=== PATIENT | female | born 1985 | race American Indian/Alaskan Native ===

== ENCOUNTER 2017-05-01 02:11 | Emergency (ER) | payer OTHER ==
[2017-05-01 02:12] VITALS: BMI 41.1
[2017-05-01 02:28] VITALS: BP 152/95; RESP 20; O2SAT 100
[2017-05-01] MEDS ORDERED: Sodium Chloride 0.9% 1,000 ML IV STA (03:00)
--- NOTE | 2017-05-01 03:04 | ED PDOC ---
Arrival/HPI - General Chief Complaint: Flu-like Symptoms Time Seen by Provider: 05/01/17 02:42 Historian: Patient, Parent - History of Present Illness Narrative History of Present Illness (Text): you were treated in the ED today for sinus congestion, fever, chills, bodyaches , and you were otherwise without any nausea/vomiting/headache/dizziness/ difficulty breathing/chest pain/abdomen pain/numbness/tingling/loss of limb function. 05/01/17 03:01 Symptom Onset: Gradual Symptom Course: Unchanged Quality: Aching Severity Level: 2 Activities at Onset: Rest Context: Sitting Past Medical History - Provider Review Nursing Documentation Reviewed: Yes - Travel History Have you recently traveled outside [place] w/in the past 3 mons?: No - Infectious Disease Hx of Infectious Diseases: None - Tetanus Immunization Tetanus Immunization: Unknown - Reproductive Menopause: No - Cardiac Hx Cardiac Disorders: No Hx Hypertension: Yes - Pulmonary Hx Respiratory Disorders: No - Neurological Hx Neurological Disorder: No - HEENT Hx HEENT Disorder: No - Renal Hx Renal Disorder: No - Endocrine/Metabolic Hx Diabetes Mellitus Type 2: Yes Other/Comment: on insulin breast feeding - Hematological/Oncological Hx Blood Disorders: No - Integumentary Hx Dermatological Disorder: No - Musculoskeletal/Rheumatological Hx Musculoskeletal Disorders: No - Gastrointestinal Hx Gastrointestinal Disorders: No - Genitourinary/Gynecological Hx Genitourinary Disorders: No - Psychiatric Hx Psychophysiologic Disorder: No Hx Substance Use: No - Surgical History Hx Section: Yes (x1) - Anesthesia Hx Anesthesia Reactions: No Hx Malignant Hyperthermia: No - Suicidal Assessment Feels Threatened In Home Enviroment: No Family/Social History - Physician Review Nursing Documentation Reviewed: Yes Family/Social History: No Known Family HX Smoking Status: Never Smoked Hx Alcohol Use: Yes Frequency of alcohol use: Socially Hx Substance Use: No Hx Substance Use Treatment: No Allergies/Home Meds Allergies/Adverse Reactions: Allergies No Known Allergies Allergy (Verified 02/04/14 16:55) Review of Systems - Review of Systems Constitutional: Fevers Eyes: Normal ENT: Rhinorrhea, Sinus Congestion Respiratory: Cough Cardiovascular: Normal Gastrointestinal: Normal Genitourinary Female: Normal Musculoskeletal: Myalgias Skin: Normal Neurological: Normal Endocrine: Normal Hemo/Lymphatic: Normal Psychiatric: Normal Physical Exam Vital Signs Reviewed: Yes Vital Signs Temp Pulse Resp BP Pulse Ox 05/01/17 02:24 100.2 F H 108 H 20 152/95 H 100 Temperature: Febrile Blood Pressure: Hypertensive Pulse: Tachycardic Respiratory Rate: Normal Appearance: Positive for: Ill-Appearing Pain Distress: None Mental Status: Positive for: Alert and Oriented X 3 Finger Stick Blood Glucose: 91 - Systems Exam Head: Present: Atraumatic, Normocephalic Pupils: Present: PERRL Extroacular Muscles: Present: EOMI Conjunctiva: Present: Normal Ears: Present: Normal Mouth: Present: Moist Mucous Membranes Pharnyx: Present: Normal Nose (External): Present: Atraumatic Nose (Internal): Present: Boggy Neck: Present: Normal Range of Motion Respiratory/Chest: Present: Clear to Auscultation, Good Air Exchange Cardiovascular: Present: Regular Rate and Rhythm Abdomen: No: Tenderness, Distention, Normal Bowel Sounds, Peritoneal Signs, Rebound, Guarding, McBurney's Point Tender, Rovsing's Sign Present, Hernias, Feeding Tubes, Ostomy Tubes, Mass/Organomegaly, Scars, Other Back: Present: Normal Inspection Upper Extremity: Present: Normal Inspection Lower Extremity: Present: Normal Inspection Neurological: Present: GCS=15, CN II-XII Intact, Speech Normal, Motor Func Grossly Intact Skin: Present: Warm, Normal Color Psychiatric: Present: Alert, Oriented x 3, Normal Insight, Normal Concentration Medical Decision Making ED Course and Treatment: you were treated in the ED today for sinus congestion, fever, chills, bodyaches , and you were otherwise without any nausea/vomiting/headache/dizziness/ difficulty breathing/chest pain/abdomen pain/numbness/tingling/loss of limb function. you were sitting up, alert/oriented, good strength/sensation, no abdomen tenderness, pink skin, low fever temp 100.2 and repeat 99.1, mildly fast heart rate 108 and repeat 90, stable breathing rate 20, excellent oxygen level 100% room air, elevated blood pressure 152/95 which we recommend followup primary care 2-3 days repeat and determine further treatment, no infection count on blood tests 6.3, stable blood levels hemaglobin/platelet 12/ 211, stable chemistry test, urine test negative, influenza test positive, radiology chest xray initial without acute findings, tylenol, intravenous fluids, tamiflu and observation done in the ED, counselled to drink lots of fluids, and discharged home with mother. 1. recommend followup primary care 1-2 days to determine further care. 2. recommend tamiflu as directed for influenza control. 3. if any worsening pain, fever, chills, nausea, vomiting, any medical condition then return to the ED. 05/01/17 03:05 05/01/17 03:41 05/01/17 04:09 05/01/17 04:12 Reassessment Condition: Improved - Lab Interpretations Lab Results: 05/01/17 03:00 05/01/17 03:00 Lab Results 05/01/17 03:00: Sodium 143, Potassium 3.7, Chloride 108 H, Carbon Dioxide 24, Anion Gap 14, BUN 7, Creatinine 0.8, Est GFR ( Amer) > 60, Est GFR (Non- Af Amer) > 60, Random Glucose 91, Calcium 9.4, Total Bilirubin 0.3, AST 27, ALT 29, Alkaline Phosphatase 48, Total Protein 6.6, Albumin 3.5, Globulin 3.1, Albumin/Globulin Ratio 1.1 05/01/17 03:00: Influenza Typ A,B (EIA) Pos for influenza b H 05/01/17 03:00: WBC 6.3, RBC 4.52, Hgb 12.2, Hct 36.6, MCV 81.0, MCH 27.0, MCHC 33.3, RDW 13.1, Plt Count 211, MPV 9.9, Gran % 67.1, Lymph % (Auto) 18.4 L, [place] % (Auto) 13.8 H, Eos % (Auto) 0.5 L, Baso % (Auto) 0.2, Gran # 4.24, Lymph # (Auto) 1.2, [place] # (Auto) 0.9 H, Eos # (Auto) 0.0, Baso # (Auto) 0.01 I have reviewed the lab results: Yes - RAD Interpretation Radiology Orders: 05/01/17 03:05 CHEST ONE VIEW [RAD] Stat Money Position Officer: ED Physician (cxr no acute) - Medication Orders Current Medication Orders: Discontinued Medications Acetaminophen (Tylenol 325mg Tab) 975 mg PO STAT STA Stop: 05/01/17 03:01 Last Admin: 05/01/17 03:04 Dose: 975 mg MAR Pain/Vitals Document 05/01/17 03:04 JAMIE (Rec: 05/01/17 03:05 [facility] [id number]) Pain Reassessment Is This A Pain ReAssessment? No Sleep Is patient sleeping during reassessment? No Presence of Pain Presence of Pain Yes Pain Scale Used Pain Scale Used Numeric Location Pain Location Body Site Generalized Intensity 5 Sodium Chloride (Sodium Chloride 0.9%) 1,000 mls @ 999 mls/hr IV .Q1H1M STA Stop: 05/01/17 04:00 Last Admin: 05/01/17 03:04 Dose: 999 mls/hr eMAR Start Stop Document 05/01/17 03:04 JOEzekiel (Rec: 05/01/17 03:04 [facility] [id number]) Intravenous Solution Start Date 05/01/17 Start Time 03:04 End Date 05/01/17 End time 04:05 Total Infusion Time 61 Oseltamivir Phosphate (Tamiflu Cap) 75 mg PO ONCE ONE PRN Reason: Protocol Stop: 05/01/17 03:45 Last Admin: 05/01/17 03:57 Dose: 75 mg Disposition/Present on Arrival - Present on Arrival Any Indicators Present on Arrival: No History of DVT/PE: No History of Uncontrolled Diabetes: No Urinary Catheter: No History of Decub. Ulcer: No History Surgical Site Infection Following: None - Disposition Have Diagnosis and Disposition been Completed?: Yes Diagnosis: Influenza Disposition: HOME/ ROUTINE Disposition Time: 04:13 Isolation: Airborne Patient Plan: Discharge Patient Problems: Current Active Problems Problem Status Onset Influenza Acute Condition: IMPROVED Additional Instructions: you were treated in the ED today for sinus congestion, fever, chills, bodyaches , and you were otherwise without any nausea/vomiting/headache/dizziness/ difficulty breathing/chest pain/abdomen pain/numbness/tingling/loss of limb function. you were sitting up, alert/oriented, good strength/sensation, no abdomen tenderness, pink skin, low fever temp 100.2 and repeat 99.1, mildly fast heart rate 108 and repeat 90, stable breathing rate 20, excellent oxygen level 100% room air, elevated blood pressure 152/95 which we recommend followup primary care 2-3 days repeat and determine further treatment, no infection count on blood tests 6.3, stable blood levels hemaglobin/platelet 12/ 211, stable chemistry test, urine test negative, influenza test positive, radiology chest xray initial without acute findings, tylenol, intravenous fluids, tamiflu and observation done in the ED, counselled to drink lots of fluids, and discharged home with mother. 1. recommend followup primary care 1-2 days to determine further care. 2. recommend tamiflu as directed for influenza control. 3. if any worsening pain, fever, chills, nausea, vomiting, any medical condition then return to the ED. Prescriptions: Oseltamivir Phosphate [Tamiflu] 75 mg PO Q12 5 Days #10 capsule Forms: [email or web address] ([place]ayan), WORK NOTE
[2017-05-01 03:13] LABS: BASO # 0.01 K/mm3 (0.0-2.0); BASO % 0.2 % (0.0-3.0); EOS % 0.5 % (1.5-5.0); GRAN # 4.24 (1.4-6.5); GRAN % 67.1 % (50.0-68.0); HEMOGLOBIN 12.2 g/dL (12.0-16.0); LYMPH # 1.2 (1.2-3.4); LYMPH % 18.4 % (22.0-35.0); MEAN CORPUSCULAR HGB CONC 33.3 g/dl (31.0-37.0); MEAN PLATELET VOLUME 9.9 fl (7.0-11.0); MONO # 0.9 (0.1-0.6); MONO % 13.8 % (1.0-6.0); RBC 4.52 10^6/uL (3.5-6.1); RED CELL DISTRIBUTION WIDTH 13.1 % (11.5-14.5); WHITE BLOOD COUNT 6.3 10^3/ul (4.5-11.0)
[2017-05-01 03:20] LABS: ALB/GLOB RATIO 1.1 (1.1-1.8); ALBUMIN 3.5 g/dL (3.0-4.8); ALT/SGPT 29 U/L (7-56); AST/SGOT 27 U/L (14-36); BLOOD UREA NITROGEN 7 mg/dL (7-21); CALCIUM 9.4 mg/dL (8.4-10.5); GFR AFRICAN-AMERICAN > 60; GFR NON-AFRICAN AMERICAN > 60
[2017-05-01 04:22] VITALS: PULSE 90; TEMP 99.1
--- NOTE | 2017-05-01 10:38 | RAD ---
PROCEDURE: CHEST RADIOGRAPH, 1 VIEW HISTORY: Cough COMPARISON: None available. FINDINGS: LUNGS: Clear. PLEURA: No pneumothorax or pleural fluid seen. CARDIOVASCULAR: Normal. OSSEOUS STRUCTURES: No significant abnormalities. VISUALIZED UPPER ABDOMEN: Normal. OTHER FINDINGS: None. IMPRESSION: No active disease.
== END 2017-05-01 04:22 | disposition home or self-care (01) ==
LOC: ED 02:11
DX: J11.1 Influenza due to unidentified influenza virus with other respiratory manifestations (principal); I10 Essential (primary) hypertension
CPT/HCPCS: 71045; 80053; 85025; 87804; 96360; 99284; J7040